=== PATIENT | female | born 1940 | race Caucasian/White ===

== ENCOUNTER → 2021-05-15 | Outpatient (CLI) | payer MEDICARE ==
--- NOTE | 2021-05-15 10:36 | RAD ---
EXAM: Lower extremity arterial Doppler sonogram with ankle-brachial indices (YOLY). HISTORY: Foot numbness. Peripheral vascular disease. Atherosclerosis. TECHNIQUE: Doppler sonographic evaluation of the lower extremities was performed and pressure reading s were assessed. FINDINGS: Right brachial pressure: 140 mmHg Left brachial pressure: 120 mmHg Right ankle pressure (dorsalis pedis artery): 142 mmHg Right ankle pressure (posterior tibial artery): 140 mmHg Right YOLY: 1.0 Left ankle pressure (dorsalis pedis artery): 144 mmHg Left ankle pressure (posterior tibial artery): 144 mmHg Left YOLY: 1.0 IMPRESSION: Normal bilateral ankle-brachial indices. Electronically signed by: Soraida Edward MD (05/15/2021 10:34 AM) [id number]
== END ==
LOC: US 09:39
PROVIDERS: ATTEND Family Medicine
DX: R20.0 Anesthesia of skin (principal)
CPT/HCPCS: 93923